=== PATIENT | female | born 1970 | race Caucasian/White ===

== ENCOUNTER 2024-03-17 15:31 | Emergency (ER) | payer OTHER ==
[~2024-03-17] VITALS: Ht 167.6 cm; Wt 79.4 kg
[2024-03-17] MEDS ORDERED: Acetaminophen/Oxycodone 5 MG/325 MG TABLET PO ONE (15:50)
== END 2024-03-17 16:43 | disposition home or self-care (01) ==
LOC: ED 15:31
DX: S30.0XXA Contusion of lower back and pelvis, initial encounter (principal); W18.09XA Striking against other object with subsequent fall, initial encounter; Y93.89 Activity, other specified; Y92.89 Other specified places as the place of occurrence of the external cause; Y99.0 Civilian activity done for income or pay

== ENCOUNTER 2024-03-19 20:30 | Emergency (ER) | payer OTHER ==
[~2024-03-19] VITALS: Ht 167.6 cm; Wt 79.4 kg
[2024-03-19] MEDS ORDERED: Ketorolac Tromethamine 60 MG/2 ML VIAL IM ONE (20:45)
[2024-03-19] MEDS ORDERED: METHOCARBAMOL 500 MG TAB PO ONE (20:45)
[2024-03-19] MEDS ORDERED: NAPROXEN250 MG PO (20:49)
[2024-03-19] MEDS ORDERED: METHOCARBAMOL750 M1 PO (20:49)
== END 2024-03-19 21:04 | disposition home or self-care (01) ==
LOC: ED 20:30
DX: S39.012A Strain of muscle, fascia and tendon of lower back, initial encounter (principal); M79.604 Pain in right leg; X50.0XXA Overexertion from strenuous movement or load, initial encounter; Y93.89 Activity, other specified; Y92.009 Unspecified place in unspecified non-institutional (private) residence as the place of occurrence of the external cause; Y99.8 Other external cause status

== ENCOUNTER 2025-02-09 21:03 | Emergency (ER) | payer MEDICAID ==
[~2025-02-09] VITALS: Ht 165.1 cm; Wt 77.1 kg
[~2025-02-09 21:03] MED LIST: METHOCARBAMOL750 M1 PO; NAPROXEN250 MG PO
[2025-02-09] MEDS ORDERED: Dexamethasone Sodium Phospha 20 MG/5 ML VIAL IV ONE (21:20)
[2025-02-09] MEDS ORDERED: diphenhydrAMINE hydrochloride 50 MG/ML VIAL IV ONE (21:20)
[2025-02-09] MEDS ORDERED: SODIUM CHLORIDE 0.9% 1,000 ML IV ONE (21:20)
[2025-02-09 21:45] LABS: BASO # 0.0 10*3/uL (0.0-0.1); BASO % 0.3 % (0.0-1.0); EOS # 0.1 10*3/uL (0.0-0.4); EOS % 1.2 % (1.0-4.0); MEAN CELL VOLUME 91.7 fl (81.0-99.0); MEAN CORPUSCULAR HGB 30.5 pg (27.0-31.0); MEAN PLATELET VOLUME 9.6 fl (9.6-12.3); MONO # 0.5 10*3/uL (0.1-1.0); MONO % 8.6 % (3.0-9.0); NEUT # 3.1 10*3/uL (2.3-7.9); NEUT % 51.9 % (47.0-73.0); NUCLEATED RED BLOOD CELL 0.0 % (0.0-0.0); NUCLEATED RED BLOOD CELL 0.0 10*3/uL (0.0-0.0); PLATELET COUNT AUTOMATED 322 10*3/uL (130-400); RED CELL DISTRI WIDTH 13.1 % (0-14.5)
[2025-02-09 22:05] LABS: BUN 20 mg/dl (9-23)
== END 2025-02-09 22:47 | disposition home or self-care (01) ==
LOC: ED 21:03
PROVIDERS: Nurse Practitioner Family
DX: E86.0 Dehydration (principal); G43.909 Migraine, unspecified, not intractable, without status migrainosus; Z79.899 Other long term (current) drug therapy

== ENCOUNTER 2025-07-21 01:28 | Emergency (ER) | payer OTHER, MEDICAID ==
[~2025-07-21] VITALS: Ht 165.1 cm; Wt 77.1 kg
[2025-07-21] MEDS ORDERED: ACETAMINOPHEN 325 MG TAB PO ONE (02:00)
[2025-07-21] MEDS ORDERED: diphenhydrAMINE hydrochloride 50 MG/ML VIAL IV ONE (02:00)
[2025-07-21] MEDS ORDERED: Metoclopramide Hydrochloride 10 MG/2 ML VIAL IV ONE (02:00)
[2025-07-21] MEDS ORDERED: SODIUM CHLORIDE 0.9% 1,000 ML IV ONE (02:00)
[2025-07-21] MEDS ORDERED: Dexamethasone Sodium Phospha 20 MG/5 ML VIAL IV ONE (02:00)
[2025-07-21] MEDS ORDERED: REGLAN10 M1 PO (02:59)
== END 2025-07-21 03:21 | disposition home or self-care (01) ==
LOC: ED 01:28
DX: G43.909 Migraine, unspecified, not intractable, without status migrainosus (principal)